=== PATIENT | male | born 1975 | race Caucasian/White ===

== ENCOUNTER 2019-10-15 07:48 | Inpatient (IN) | payer OTHER ==
[~2019-10-15] VITALS: Ht 165.1 cm; Wt 72.7 kg
[2019-10-15] MEDS ORDERED: FURO20 PO (08:22)
[2019-10-15] MEDS ORDERED: 0.9% SODIUM CHLORIDE 10 ML SYRINGE IVP PRN ×2 (08:45→10:45)
[2019-10-15] MEDS ORDERED: ONDANSETRON HCL 4 MG/2 ML VIAL IVP PRN ×2 (08:45→10:45)
[2019-10-15] MEDS ORDERED: ACETAMINOPHEN 325 MG TABLET PO PRN (08:45)
[2019-10-15 08:57] LABS: BASOPHILS % (AUTO) 0.5 % (0.0-2.0); EOSINOPHILS % (AUTO) 2.2 % (1.0-6.0); HEMOGLOBIN 13.1 g/dL (13.5-17.5); LYMPHOCYTES # (AUTO) 1.1 K/uL (1.0-4.8); LYMPHOCYTES % (AUTO) 16.8 % (22.0-44.0); MEAN CORPUSCULAR HEMOGLOBIN 29.8 pg (26.0-34.0); MEAN CORPUSCULAR HGB CONC 33.5 G/dL (31.0-37.0); MEAN CORPUSCULAR VOLUME 89 fL (80-100); MONOCYTES # (AUTO) 0.5 K/uL (0.1-1.0); MONOCYTES % (AUTO) 7.8 % (2.0-9.0); NEUTROPHILS # (AUTO) 4.7 K/uL (1.8-7.7); NEUTROPHILS % (AUTO) 72.7 % (40.0-70.0); PLATELET COUNT (AUTO) 318 K/uL (150-450); RED BLOOD CELL COUNT(AUTO) 4.38 MIL/uL (4.50-5.90); RED CELL DISTRIBUTION WIDTH 13.4 % (11.5-14.5)
[2019-10-15 09:06] LABS: ANION GAP 3 mmol/L (8-16); CALCIUM, TOTAL 9.1 mg/dL (8.8-10.5); CARBON DIOXIDE 32 mmol/L (22-29); CHLORIDE 104 mmol/L (98-107); CREATININE 1.08 mg/dL (0.60-1.30); GLOMERULAR FILTR. RATE CALC > 60 mL/min (>60); GLUCOSE,RANDOM 95 mg/dL (70-110); POTASSIUM 4.3 mmol/L (3.5-5.1); SODIUM SERUM 139 mmol/L (136-145); UREA NITROGEN, BLOOD 16 mg/dL (7-18)
[2019-10-15 09:23] LABS: ALANINE AMINOTRANSFERASE 19 U/L (12-78); ALBUMIN 3.4 g/dL (3.4-5.0); ALKALINE PHOSPHATASE 93 U/L (46-116); ASPARTATE AMINOTRANSFERASE 20 U/L (15-37); BILIRUBIN,TOTAL 0.9 mg/dL (0.1-1.0); C-REACTIVE PROTEIN QUANT 0.69 mg/dL (0.00-0.30); FERRITIN 89 ng/mL (26-388); LACTATE DEHYDROGENASE 200 U/L (85-227); TOTAL PROTEIN, SERUM 8.4 g/dL (6.4-8.2)
[2019-10-15] MEDS ORDERED: BISACODYL 10 MG RECTAL RECTAL SUPPOSITORY PR PRN (10:45)
[2019-10-15] MEDS ORDERED: ALBUTEROL SULFATE 2.5 MG/0.5 ML NEB SOLUTION NEB PRN (10:45)
[2019-10-15] MEDS ORDERED: DOCUSATE SODIUM 100 MG CAPSULE PO PRN (10:45)
[2019-10-15] MEDS ORDERED: MAGNESIUM HYDROXIDE SUSPENSION 30 ML UDCUP PO PRN (10:45)
[2019-10-15] MEDS ORDERED: IPRATROPIUM BROMIDE 0.5 MG/2.5 ML NEB SOLUTION NEB PRN (10:45)
[2019-10-15 11:14] VITALS: BP 150/103
[2019-10-15] MEDS ORDERED: IOVERSOL 350 MG/ML 100 ML VIAL ONE ×2 (11:18→15:29)
[2019-10-15] MEDS ORDERED: SODIUM CHLORIDE 0.9% 100 ML ONE ×2 (11:18→15:28)
[2019-10-15] MEDS: ACETAMINOPHEN 325 MG TABLET PO PRN ×3 (11:51→20:47)
[2019-10-15] MEDS: PANTOPRAZOLE SODIUM 40 MG DR TABLET PO SCH (11:51)
[2019-10-15 12:12] LABS: ERYTHROCYTE SEDIMENTATION RATE 50 MM/HR (0-15)
[2019-10-15] MEDS: HydrALAZINE HCL 25 MG TABLET PO SCH ×3 (12:19→20:47)
[2019-10-15 13:23] LABS: AMPHET/METH SCREEN,URINE POSITIVE (NEGATIVE); BARBITURATE SCREEN, URINE NEGATIVE (NEGATIVE); BENZODIAZEPINES SCREEN,URINE NEGATIVE (NEGATIVE); CANNABINOID SCREEN,URINE NEGATIVE (NEGATIVE); COCAINE SCREEN,URINE NEGATIVE (NEGATIVE); METHADONE SCREEN, URINE NEGATIVE (NEGATIVE); OPIATE SCREEN,URINE NEGATIVE (NEGATIVE)
[2019-10-15 13:24] LABS: PHENCYCLIDINE SCREEN,URINE NEGATIVE (NEGATIVE)
[2019-10-15] MEDS: HEPARIN SODIUM,PORCINE 5,000 UNITS/ML VIAL SQ SCH ×2 (16:50→23:52)
[2019-10-15] MEDS: TraMADol HCL 50 MG TABLET PO PRN ×2 (17:54→23:52)
[2019-10-15 19:00] VITALS: BP 140/70
[2019-10-16 07:07] LABS: BASOPHILS % (AUTO) 0.7 % (0.0-2.0); EOSINOPHILS % (AUTO) 2.8 % (1.0-6.0); HEMATOCRIT 38.5 % (41-53); LYMPHOCYTES # (AUTO) 1.6 K/uL (1.0-4.8); LYMPHOCYTES % (AUTO) 22.4 % (22.0-44.0); MEAN CORPUSCULAR HEMOGLOBIN 30.1 pg (26.0-34.0); MEAN CORPUSCULAR HGB CONC 33.8 G/dL (31.0-37.0); MEAN CORPUSCULAR VOLUME 89 fL (80-100); MONOCYTES # (AUTO) 0.5 K/uL (0.1-1.0); MONOCYTES % (AUTO) 7.3 % (2.0-9.0); NEUTROPHILS # (AUTO) 4.7 K/uL (1.8-7.7); NEUTROPHILS % (AUTO) 66.8 % (40.0-70.0); PLATELET COUNT (AUTO) 329 K/uL (150-450); RED BLOOD CELL COUNT(AUTO) 4.32 MIL/uL (4.50-5.90); RED CELL DISTRIBUTION WIDTH 13.3 % (11.5-14.5)
[2019-10-16 07:38] LABS: ALANINE AMINOTRANSFERASE 20 U/L (12-78); ALBUMIN 3.1 g/dL (3.4-5.0); ALKALINE PHOSPHATASE 80 U/L (46-116); ANION GAP 8 mmol/L (8-16); ASPARTATE AMINOTRANSFERASE 17 U/L (15-37); BILIRUBIN,TOTAL 0.4 mg/dL (0.1-1.0); CALCIUM, TOTAL 8.7 mg/dL (8.8-10.5); CARBON DIOXIDE 29 mmol/L (22-29); CHLORIDE 104 mmol/L (98-107); CREATININE 1.06 mg/dL (0.60-1.30); GLOMERULAR FILTR. RATE CALC > 60 mL/min (>60); GLUCOSE,RANDOM 90 mg/dL (70-110); POTASSIUM 3.9 mmol/L (3.5-5.1); SODIUM SERUM 141 mmol/L (136-145); TOTAL PROTEIN, SERUM 7.7 g/dL (6.4-8.2); UREA NITROGEN, BLOOD 17 mg/dL (7-18)
[2019-10-16] MEDS: PANTOPRAZOLE SODIUM 40 MG DR TABLET PO SCH (08:18)
[2019-10-16] MEDS: HydrALAZINE HCL 25 MG TABLET PO SCH ×4 (08:18→21:16)
[2019-10-16] MEDS: HEPARIN SODIUM,PORCINE 5,000 UNITS/ML VIAL SQ SCH ×3 (08:25→23:35)
[2019-10-16 08:31] VITALS: BP 121/77
[2019-10-16] MEDS: TraMADol HCL 50 MG TABLET PO PRN ×2 (08:41→16:06)
[2019-10-16 20:00] VITALS: BP 131/73
[2019-10-16] MEDS ORDERED: IPRATROPIUM BROMIDE 0.5 MG/2.5 ML NEB SOLUTION NEB PRN (21:00)
[2019-10-16] MEDS ORDERED: ALBUTEROL SULFATE 2.5 MG/0.5 ML NEB SOLUTION NEB PRN (21:00)
[2019-10-16 23:33] VITALS: BP 128/83
[2019-10-17] MEDS: PANTOPRAZOLE SODIUM 40 MG DR TABLET PO SCH (08:07)
[2019-10-17] MEDS: HydrALAZINE HCL 25 MG TABLET PO SCH ×4 (08:07→20:11)
[2019-10-17] MEDS: HEPARIN SODIUM,PORCINE 5,000 UNITS/ML VIAL SQ SCH ×3 (08:07→23:49)
[2019-10-17 08:15] VITALS: BP 133/76
[2019-10-17] MEDS: TraMADol HCL 50 MG TABLET PO PRN ×2 (12:13→23:55)
[2019-10-17 12:15] VITALS: BP 136/79
[2019-10-17 15:04] VITALS: BP 128/77
[2019-10-17 20:00] VITALS: BP 129/79
[2019-10-17 23:59] VITALS: BP 130/76
[2019-10-18 07:49] VITALS: BP 147/69
[2019-10-18] MEDS: HydrALAZINE HCL 25 MG TABLET PO SCH ×2 (08:32→12:38)
[2019-10-18] MEDS: PANTOPRAZOLE SODIUM 40 MG DR TABLET PO SCH (08:32)
[2019-10-18] MEDS: HEPARIN SODIUM,PORCINE 5,000 UNITS/ML VIAL SQ SCH (08:33)
[2019-10-18] MEDS ORDERED: HYDR25TA84 PO (09:00)
[2019-10-18] MEDS ORDERED: ACET-66 PO (09:01)
[2019-10-18] MEDS: TraMADol HCL 50 MG TABLET PO PRN (09:39)
== END 2019-10-18 15:55 | DRG 204 ==
LOC: EMS 07:52 → 6N 10:36
PROVIDERS: ADMIT Internal Medicine; ATTEND Internal Medicine
DX: R05 Cough (principal); Z20.828 Contact with and (suspected) exposure to other viral communicable diseases; B18.2 Chronic viral hepatitis C; I10 Essential (primary) hypertension; F15.10 Other stimulant abuse, uncomplicated; Z86.19 Personal history of other infectious and parasitic diseases
CPT/HCPCS: 73701; 82728; 83615; 84145; 85379; 85651; 86140; 87040; 87426; 93971; J1644; J7050; 36415-L1; 36415-TC; 71045-TC; U0003-CS

== ENCOUNTER 2020-06-28 18:21 | Inpatient (IN) | payer OTHER ==
[~2020-06-28] VITALS: Ht 162.6 cm; Wt 84.2 kg
[~2020-06-28 18:21] MED LIST: ACET-3385 PO; HYDR25TA84 PO
[2020-06-28 19:53] LABS: BASOPHILS % (AUTO) 0.3 % (0.0-2.0); EOSINOPHILS % (AUTO) 0.5 % (1.0-6.0); HEMATOCRIT 37.3 % (41-53); HEMOGLOBIN 12.5 g/dL (13.5-17.5); LYMPHOCYTES # (AUTO) 1.3 K/uL (1.0-4.8); LYMPHOCYTES % (AUTO) 11.8 % (22.0-44.0); MEAN CORPUSCULAR HEMOGLOBIN 31.3 pg (26.0-34.0); MEAN CORPUSCULAR HGB CONC 33.4 G/dL (31.0-37.0); MEAN CORPUSCULAR VOLUME 94 fL (80-100); MONOCYTES # (AUTO) 1.1 K/uL (0.1-1.0); NEUTROPHILS # (AUTO) 8.6 K/uL (1.8-7.7); NEUTROPHILS % (AUTO) 77.4 % (40.0-70.0); PLATELET COUNT (AUTO) 360 K/uL (150-450); RED BLOOD CELL COUNT(AUTO) 3.98 MIL/uL (4.50-5.90); RED CELL DISTRIBUTION WIDTH 13.6 % (11.5-14.5)
[2020-06-28 19:53] LABS: COVID AG,FIA SOURCE NASOPHARYNGEAL
[2020-06-28 20:15] LABS: CALCIUM, TOTAL 9.1 mg/dL (8.8-10.5); CREATININE 1.86 mg/dL (0.60-1.30)
[2020-06-28 20:40] LABS: ALBUMIN 4.6 g/dL (3.4-5.0); BILIRUBIN,TOTAL 0.4 mg/dL (0.1-1.0); TOTAL PROTEIN, SERUM 9.1 g/dL (6.4-8.2)
[2020-06-28] MEDS ORDERED: SODIUM CHLORIDE 0.9% 2,600 ML IV ONE (21:00)
[2020-06-28] MEDS ORDERED: ONDANSETRON HCL 4 MG/2 ML VIAL IVP PRN (21:00)
[2020-06-28 21:33] LABS: THYROID STIMULATING HORMONE 1.33 uIU/mL (0.36-3.74)
[2020-06-28 21:51] VITALS: BP 146/75
[2020-06-28] MEDS: ACETAMINOPHEN 325 MG TABLET PO PRN (21:51)
[2020-06-28] MEDS: HydrALAZINE HCL 25 MG TABLET PO SCH (23:35)
[2020-06-28] MEDS: SODIUM CHLORIDE 0.9% 1,000 ML IV SCH (23:35)
[2020-06-28] MEDS: HEPARIN SODIUM,PORCINE 5,000 UNITS/ML VIAL SQ SCH (23:53)
[2020-06-29 00:13] LABS: CALCIUM, TOTAL 7.7 mg/dL (8.8-10.5); CREATININE 1.62 mg/dL (0.60-1.30); POTASSIUM 3.7 mmol/L (3.5-5.1)
[2020-06-29 04:23] VITALS: BP 110/65
[2020-06-29 07:36] VITALS: BP 115/67
[2020-06-29] MEDS: HydrALAZINE HCL 25 MG TABLET PO SCH ×5 (07:46→20:19)
[2020-06-29] MEDS: ACETAMINOPHEN 325 MG TABLET PO PRN ×2 (07:46→20:22)
[2020-06-29] MEDS: HEPARIN SODIUM,PORCINE 5,000 UNITS/ML VIAL SQ SCH ×3 (07:46→23:47)
[2020-06-29] MEDS: SODIUM CHLORIDE 0.9% 1,000 ML IV SCH ×2 (07:47→16:01)
[2020-06-29 11:08] VITALS: BP 105/68
[2020-06-29 14:12] LABS: APPEARANCE,URINE CLEAR (CLEAR); BILIRUBIN,URINE NEGATIVE (NEGATIVE); GLUCOSE, URINE (UA) NEGATIVE (NEGATIVE); KETONES,URINE NEGATIVE (NEGATIVE); LEUKOCYTE ESTERASE ,URINE NEGATIVE (NEGATIVE); NITRATE,URINE NEGATIVE (NEGATIVE); OCCULT BLOOD,URINE NEGATIVE (NEGATIVE); PROTEIN,URINE NEGATIVE (NEGATIVE)
[2020-06-29 14:17] LABS: CREATININE,URINE RANDOM 74.8 mg/dL (30.0-125.0)
[2020-06-29 14:24] LABS: AMPHET/METH SCREEN,URINE NEGATIVE (NEGATIVE); BARBITURATE SCREEN, URINE NEGATIVE (NEGATIVE); BENZODIAZEPINES SCREEN,URINE NEGATIVE (NEGATIVE); CANNABINOID SCREEN,URINE NEGATIVE (NEGATIVE); COCAINE SCREEN,URINE NEGATIVE (NEGATIVE); METHADONE SCREEN, URINE NEGATIVE (NEGATIVE); OPIATE SCREEN,URINE NEGATIVE (NEGATIVE)
[2020-06-29 14:37] LABS: PHENCYCLIDINE SCREEN,URINE NEGATIVE (NEGATIVE)
[2020-06-29 15:42] VITALS: BP 139/76
[2020-06-29 19:24] VITALS: BP 164/97
[2020-06-29 23:21] VITALS: BP 157/91
[2020-06-30] MEDS: SODIUM CHLORIDE 0.9% 1,000 ML IV SCH ×3 (04:28→23:40)
[2020-06-30 05:14] VITALS: BP 154/83
[2020-06-30 06:33] LABS: BASOPHILS % (AUTO) 0.4 % (0.0-2.0); EOSINOPHILS % (AUTO) 1.7 % (1.0-6.0); HEMATOCRIT 33.7 % (41-53); HEMOGLOBIN 11.3 g/dL (13.5-17.5); LYMPHOCYTES # (AUTO) 1.6 K/uL (1.0-4.8); LYMPHOCYTES % (AUTO) 16.4 % (22.0-44.0); MEAN CORPUSCULAR HEMOGLOBIN 31.4 pg (26.0-34.0); MEAN CORPUSCULAR HGB CONC 33.5 G/dL (31.0-37.0); MEAN CORPUSCULAR VOLUME 94 fL (80-100); MONOCYTES # (AUTO) 1.1 K/uL (0.1-1.0); MONOCYTES % (AUTO) 11.2 % (2.0-9.0); NEUTROPHILS # (AUTO) 6.7 K/uL (1.8-7.7); NEUTROPHILS % (AUTO) 70.3 % (40.0-70.0); PLATELET COUNT (AUTO) 316 K/uL (150-450); RED BLOOD CELL COUNT(AUTO) 3.59 MIL/uL (4.50-5.90); RED CELL DISTRIBUTION WIDTH 13.6 % (11.5-14.5)
[2020-06-30 07:05] LABS: ANION GAP 10 mmol/L (8-16); CALCIUM, TOTAL 8.3 mg/dL (8.8-10.5); CARBON DIOXIDE 23 mmol/L (22-29); CHLORIDE 104 mmol/L (98-107); CREATININE 1.13 mg/dL (0.60-1.30); GLOMERULAR FILTR. RATE CALC > 60 mL/min (>60); GLUCOSE,RANDOM 95 mg/dL (70-110); PHOSPHORUS 2.7 mg/dL (2.5-4.9); POTASSIUM 4.1 mmol/L (3.5-5.1); SODIUM SERUM 137 mmol/L (136-145); UREA NITROGEN, BLOOD 18 mg/dL (7-18)
[2020-06-30 07:30] VITALS: BP 148/86
[2020-06-30] MEDS: HydrALAZINE HCL 25 MG TABLET PO SCH ×4 (08:00→20:23)
[2020-06-30] MEDS: FLUCONAZOLE 200 MG TABLET PO SCH (08:00)
[2020-06-30] MEDS: HEPARIN SODIUM,PORCINE 5,000 UNITS/ML VIAL SQ SCH ×3 (08:00→23:40)
[2020-06-30] MEDS: ACETAMINOPHEN 325 MG TABLET PO PRN ×3 (08:02→20:23)
[2020-06-30 11:20] VITALS: BP 142/81
[2020-06-30] MEDS ORDERED: DOCO2CRE4 TP (13:27)
[2020-06-30] MEDS ORDERED: FLUC200T PO (13:28)
[2020-06-30] MEDS ORDERED: CEPH500C3 PO (13:29)
[2020-06-30] MEDS: CEPHALEXIN MONOHYDRATE 500 MG CAPSULE PO SCH ×2 (15:27→23:40)
[2020-06-30] MEDS: DOCOSANOL 10% 2 GM CREAM TP SCH ×3 (15:27→20:23)
[2020-06-30 15:57] VITALS: BP 160/95
[2020-06-30 20:22] VITALS: BP 155/89
[2020-06-30 23:43] VITALS: BP 170/93
[2020-07-01] MEDS: ACETAMINOPHEN 325 MG TABLET PO PRN ×3 (00:30→20:13)
[2020-07-01] MEDS: DOCOSANOL 10% 2 GM CREAM TP SCH ×5 (05:47→20:10)
[2020-07-01 05:53] VITALS: BP 126/77
[2020-07-01 08:15] VITALS: BP 123/76
[2020-07-01] MEDS: HEPARIN SODIUM,PORCINE 5,000 UNITS/ML VIAL SQ SCH ×2 (08:32→15:20)
[2020-07-01] MEDS: HydrALAZINE HCL 25 MG TABLET PO SCH ×4 (08:32→20:10)
[2020-07-01] MEDS: CEPHALEXIN MONOHYDRATE 500 MG CAPSULE PO SCH (08:32)
[2020-07-01] MEDS: FLUCONAZOLE 200 MG TABLET PO SCH (08:32)
[2020-07-01] MEDS ORDERED: SULFAMETHOX/TRIMETH DS 800-160 MG/TABLET PO SCH (09:00)
[2020-07-01] MEDS ORDERED: *CLINICAL-LEVOFLOXACIN IVPB DOSING CLINICAL ONE (11:00)
[2020-07-01 11:30] VITALS: BP 119/72
[2020-07-01 12:03] LABS: APPEARANCE,URINE CLEAR (CLEAR); BILIRUBIN,URINE NEGATIVE (NEGATIVE); GLUCOSE, URINE (UA) NEGATIVE (NEGATIVE); KETONES,URINE NEGATIVE (NEGATIVE); LEUKOCYTE ESTERASE ,URINE NEGATIVE (NEGATIVE); NITRATE,URINE NEGATIVE (NEGATIVE); OCCULT BLOOD,URINE NEGATIVE (NEGATIVE); PH,URINE 6.5 (5.0-8.0); PROTEIN,URINE NEGATIVE (NEGATIVE)
[2020-07-01 12:17] LABS: BACTERIA,URINE None Seen /HPF (None Seen); RBC,URINE None Seen /HPF (0-2); SQUAMOUS EPITHELIAL CELL,UR Few /LPF (None Seen); WBC,URINE None Seen /HPF (0-5)
[2020-07-01] MEDS: LEVOFLOXACIN 750 MG/D5% WATER 150 ML IV SCH (13:06)
[2020-07-01] MEDS: SODIUM CHLORIDE 0.9% 1,000 ML IV SCH (13:07)
[2020-07-01 15:52] VITALS: BP 149/86
[2020-07-01 20:13] VITALS: BP 166/95
[2020-07-02] MEDS: HEPARIN SODIUM,PORCINE 5,000 UNITS/ML VIAL SQ SCH ×4 (00:15→23:55)
[2020-07-02] MEDS: SODIUM CHLORIDE 0.9% 1,000 ML IV SCH (00:15)
[2020-07-02 00:18] VITALS: BP 168/91
[2020-07-02 05:46] VITALS: BP 153/89
[2020-07-02 05:56] LABS: BASOPHILS % (AUTO) 0.6 % (0.0-2.0); EOSINOPHILS % (AUTO) 2.5 % (1.0-6.0); HEMOGLOBIN 10.6 g/dL (13.5-17.5); LYMPHOCYTES # (AUTO) 1.7 K/uL (1.0-4.8); LYMPHOCYTES % (AUTO) 21.7 % (22.0-44.0); MEAN CORPUSCULAR HEMOGLOBIN 31.3 pg (26.0-34.0); MEAN CORPUSCULAR HGB CONC 33.2 G/dL (31.0-37.0); MEAN CORPUSCULAR VOLUME 94 fL (80-100); MONOCYTES # (AUTO) 0.8 K/uL (0.1-1.0); MONOCYTES % (AUTO) 9.8 % (2.0-9.0); NEUTROPHILS # (AUTO) 5.2 K/uL (1.8-7.7); NEUTROPHILS % (AUTO) 65.4 % (40.0-70.0); PLATELET COUNT (AUTO) 312 K/uL (150-450); RED BLOOD CELL COUNT(AUTO) 3.39 MIL/uL (4.50-5.90); RED CELL DISTRIBUTION WIDTH 13.4 % (11.5-14.5)
[2020-07-02 06:16] LABS: ANION GAP 8 mmol/L (8-16); CALCIUM, TOTAL 8.1 mg/dL (8.8-10.5); CARBON DIOXIDE 24 mmol/L (22-29); CHLORIDE 107 mmol/L (98-107); CREATININE 1.09 mg/dL (0.60-1.30); GLOMERULAR FILTR. RATE CALC > 60 mL/min (>60); GLUCOSE,RANDOM 87 mg/dL (70-110); POTASSIUM 3.9 mmol/L (3.5-5.1); SODIUM SERUM 139 mmol/L (136-145); UREA NITROGEN, BLOOD 11 mg/dL (7-18)
[2020-07-02] MEDS: DOCOSANOL 10% 2 GM CREAM TP SCH ×5 (06:36→20:53)
[2020-07-02 06:42] LABS: MAGNESIUM 1.7 mg/dL (1.80-2.40); PHOSPHORUS 3.3 mg/dL (2.5-4.9)
[2020-07-02 07:37] VITALS: BP 142/84
[2020-07-02] MEDS: HydrALAZINE HCL 25 MG TABLET PO SCH ×4 (08:20→20:53)
[2020-07-02] MEDS: ACETAMINOPHEN 325 MG TABLET PO PRN (08:22)
[2020-07-02] MEDS: FLUCONAZOLE 200 MG TABLET PO SCH (08:25)
[2020-07-02] MEDS ORDERED: MAGNESIUM SULFATE 2 GM/WATER 50 ML IV ONE (10:45)
[2020-07-02 10:47] VITALS: BP 141/74
[2020-07-02] MEDS: LEVOFLOXACIN 750 MG/D5% WATER 150 ML IV SCH (13:14)
[2020-07-02] MEDS: AmLODIPine BESYLATE 5 MG TABLET PO SCH (15:28)
[2020-07-02 16:20] VITALS: BP 151/98
[2020-07-02 19:50] VITALS: BP 146/89
[2020-07-03 04:02] VITALS: BP 124/75
[2020-07-03] MEDS: DOCOSANOL 10% 2 GM CREAM TP SCH ×2 (06:04→10:00)
[2020-07-03 07:12] LABS: % IRON SATURATION 31.4 % (30-44)
[2020-07-03 07:30] VITALS: BP 124/75
[2020-07-03] MEDS: FLUCONAZOLE 200 MG TABLET PO SCH (08:14)
[2020-07-03] MEDS: ACETAMINOPHEN 325 MG TABLET PO PRN (08:14)
[2020-07-03] MEDS: HEPARIN SODIUM,PORCINE 5,000 UNITS/ML VIAL SQ SCH (08:14)
[2020-07-03] MEDS: AmLODIPine BESYLATE 5 MG TABLET PO SCH (08:14)
[2020-07-03] MEDS: HydrALAZINE HCL 25 MG TABLET PO SCH (08:14)
[2020-07-03] MEDS ORDERED: LEVO750T68 PO (08:55)
[2020-07-03] MEDS ORDERED: AMLO-257 PO (08:55)
[2020-07-03] MEDS ORDERED: DOCO2CRE7 TP (08:58)
== END 2020-07-03 12:30 | DRG 641 ==
LOC: EMS 18:25 → 5S 20:00
PROVIDERS: ADMIT Internal Medicine; ATTEND Internal Medicine
DX: E86.0 Dehydration (principal); N17.9 Acute kidney failure, unspecified; L03.115 Cellulitis of right lower limb; R55 Syncope and collapse; D64.9 Anemia, unspecified; D72.829 Elevated white blood cell count, unspecified; E66.3 Overweight; B19.20 Unspecified viral hepatitis C without hepatic coma; Z80.8 Family history of malignant neoplasm of other organs or systems; Z83.3 Family history of diabetes mellitus; M54.2 Cervicalgia; Z68.31 Body mass index [BMI] 31.0-31.9, adult; S91.109A Unspecified open wound of unspecified toe(s) without damage to nail, initial encounter; X58.XXXA Exposure to other specified factors, initial encounter; Y93.9 Activity, unspecified; Y92.89 Other specified places as the place of occurrence of the external cause; Y99.8 Other external cause status; I12.9 Hypertensive chronic kidney disease with stage 1 through stage 4 chronic kidney disease, or unspecified chronic kidney disease; N18.9 Chronic kidney disease, unspecified; Z20.822 Contact with and (suspected) exposure to COVID-19
CPT/HCPCS: 70450; 71045; 72125; 76770; 80048; 80053; 80307; 81001; 81003; 82550; 82570; 82728; 83540; 83550; 83735; 83880; 84100; 84300; 84443; 84484; 85025; 85379; 85610; 85730; 87426; 93005; 93970; 97116; 97161; 99285; J1644; J1956; J3475; J7030; 36415-L1; 36415-TC